=== PATIENT | male | born 1985 | race Caucasian/White ===

== ENCOUNTER 2022-09-17 18:55 | Emergency (ER) | payer OTHER, SELFPAY ==
[2022-09-17 19:10] VITALS: BP 144/86; PULSE 96; RESP 16; TEMP 36.8; O2SAT 100
--- NOTE | 2022-09-17 19:31 | ED.DENTAL ---
HPI - Dental/Oral General Chief complaint: Dental/Oral Stated complaint: Tooth pain Time Seen by Provider: 09/17/22 19:00 Source: patient and RN notes reviewed History of Present Illness HPI Narrative: patient is a 36-year-old male who presents to urgent care with complaints of right upper dental pain. Patient states that it started yesterday. States that he does have a root canal scheduled in 2 weeks. Patient was on a steroid to help with the pain and inflammation. Patient denies any fevers, nausea or vomiting. States that the pain and increased redness has caused facial swelling. No other acute complaints. Patient has been taking Tylenol for the pain. No acute distress noted. Patient aware of the plan of care. Some parts of this dictation were generated by voice recognition software and may contain typographical and/or grammatical inaccuracies. Related Data Home Medications Medication Instructions Recorded Confirmed bupropion HCl 300 mg 24 hr tablet, 300 mg PO DIRECTED 09/17/22 09/17/22 extended release Allergies Allergy/AdvReac Type Severity Reaction Status Date / Time No Known Allergies Allergy Verified 09/17/22 19:09 Review of Systems Review of Systems: CONSTITUTIONAL: Denies fever, chills, or sweats. EYES: Denies visual changes, redness, or discharge. ENT: Denies rhinorrhea, congestion, sore throat, or otalgia. Reports of right upper dental pain with facial swelling CARDIOVASCULAR: Denies chest pain, palpitations, or edema. RESPIRATORY: Denies cough or dyspnea. GASTROINTESTINAL: Denies abdominal pain, nausea, vomiting, or diarrhea. GENITOURINARY: Denies dysuria or hematuria. SKIN: Denies rash or itching. MUSCULOSKELETAL: Denies back pain, joint pain, or myalgia. NEUROLOGIC: Denies headache, numbness, or weakness. All other systems reviewed are negative, except as documented in HPI. PMFSH Comments At the time of my signature, I reviewed and agree with the nursing past medical, surgical, social, and family history. There is no relevant family history pertinent to the patient complaint. Exam Narrative: GENERAL: This is a well-nourished, well-developed patient, in no apparent distress. HEAD: normocephalic, atraumatic. EYES: PERRL. Sclera clear/white. Vision is grossly intact. EARS: External ears normal, auditory canals clear and without drainage, TMs normal without perforation. Hearing grossly intact. NOSE: External nose normal with no obvious nasal discharge, nares without redness, no rhinorrhea. THROAT: Mucous membranes moist, posterior pharynx clear. DENTAL: mild erythema and edema to the right upper 2nd premolar with mild facial swelling and tenderness NECK: Neck supple, non-tender without lymphadenopathy RESPIRATORY: Clear to auscultation. Breath sounds equal bilaterally. No wheezes, rales, or rhonchi. SKIN: warm, intact with no suspicious lesions or rash, good texture and turgor. NEURO: awake, alert, and oriented to person, place and time. There were no obvious focal neurologic abnormalities. EXTREMITIES: No clubbing, cyanosis, or edema. Course Course Level of Care: Express Care Visit Vital Signs Vital signs: Vital Signs Temperature 98.2 F 09/17/22 19:10 Pulse Rate 96 09/17/22 19:10 Respiratory Rate 16 09/17/22 19:10 Blood Pressure 144/86 H 09/17/22 19:10 Pulse Oximetry 100 09/17/22 19:10 Oxygen Delivery Room Air 09/17/22 19:10 Temperature 98.2 F 09/17/22 19:10 Pulse Rate 96 09/17/22 19:10 Respiratory Rate 16 09/17/22 19:10 Blood Pressure 144/86 H 09/17/22 19:10 Pulse Oximetry 100 09/17/22 19:10 Oxygen Delivery Room Air 09/17/22 19:10 Reviewed- Patient is informed that they may have pre-hypertension or hypertension based on a blood pressure reading in the department. I recommend the patient call the primary care provider listed on their discharge instructions or a physician of their choice this week to arrange follow-up for further
== END 2022-09-17 19:43 | disposition home or self-care (01) ==
PROVIDERS: Emergency Provider Nurse Practitioner Family; PCP Hospitalist
DX: K04.7 Periapical abscess without sinus (principal); F41.9 Anxiety disorder, unspecified; F32.A Depression, unspecified
CPT/HCPCS: 99213; G0463

== ENCOUNTER 2023-04-25 15:26 | Emergency (ER) | payer BC, SELFPAY ==
--- NOTE | ~2023-04-25 | XR_ITS ---
EXAMINATION: XR foot LT min 3V DATE: 04/25/2023 15:48 INDICATION: Left foot pain TECHNIQUE: Dorsoplantar, lateral, and 2 oblique views of the left foot were obtained. COMPARISON: None. FINDINGS: Bone alignment is normal. There is no fracture. There is mild osteoarthritis of multiple in terphalangeal joints. Posterior and plantar calcaneal enthesophytes are noted. IMPRESSION: 1. No acute osseous abnormality. Reviewed, dictated and finalized at location F.
[2023-04-25 15:30] VITALS: BP 139/79; PULSE 101; RESP 20; TEMP 36.7; O2SAT 100
--- NOTE | 2023-04-25 15:52 | ED.GENADULT ---
HPI - General Adult General Chief complaint: Extremity Injury, Upper Stated complaint: left foot pain Source: patient Mode of arrival: ambulatory Limitations: no limitations History of Present Illness HPI narrative: 37y/o male presented for complaint of left lateral foot pain for a few days. Pain is 0 at rest, rates 5/10 when walking. States walking barefoot is almost unbearable. He denies numbness, tingling, swelling, or bruising. Denies injury or excessive use. Endorses a history of high arches and has had a fracture as a result. He states he hoped it would improve on its own but has persisted. Related Data Home Medications Medication Instructions Recorded Confirmed bupropion HCl 300 mg 24 hr tablet, 300 mg PO DIRECTED 09/17/22 04/25/23 extended release Allergies Allergy/AdvReac Type Severity Reaction Status Date / Time No Known Allergies Allergy Verified 04/25/23 15:38 Review of Systems Review of Systems: CONSTITUTIONAL: Denies body aches, fever, chills EYES: Denies visual changes ENT: Denies rhinorrhea, congestion CARDIOVASCULAR: Denies chest pain, palpitations, or edema. RESPIRATORY: Denies cough or dyspnea. GASTROINTESTINAL: Denies abdominal pain, nausea, vomiting, or diarrhea. SKIN: Denies rash, itching, or wounds. MUSCULOSKELETAL: Reports left foot pain Denies back pain, joint pain, or myalgia. NEUROLOGIC: Denies headache, numbness, tingling, or weakness. PSYCH: Denies depression or anxiety. All systems reviewed & are unremarkable except as noted in HPI and below PMFSH Past Medical History Medical History (Updated 04/25/23 @ 16:22 by Alyssa Glaser, TRACY) No pertinent past medical history Comments At time of signature, I have reviewed and agree with nursing past medical, surgical, social and family history unless otherwise noted. Please see nursing chart for further information. There is no relevant family history pertinent to the presenting complaint Exam Narrative: GENERAL: Well-appearing, well-nourished, and in no acute distress. HEAD: Normocephalic, atraumatic. EYES: PERRLA, conjunctivae clear CHEST: Speaks in full sentences. No respiratory distress. HEART: Regular rate and rhythm. Normal and equal peripheral pulses. EXTREMITIES: left foot pain reported to the dorsal aspect of the 3rd through 5th mid metatarsals. Nontender to palpation. Foot has normal strength and sensation, normal range of motion. No swelling, redness, or ecchymosis, No open wounds, or obvious deformity; alignment normal, pulse palpable and equal bilaterally, skin warm, dry, pink. Capillary refill less than 3 seconds. SKIN: Warm, dry, no rash. NEURO: Alert and oriented x3. PSYCH: Normal mood and affect Course Course Emergency Course: Patient is aware of diagnosis, understands and agrees to treatment plan. Anticipatory guidance given. Patient agrees to follow-up as directed and is aware of reasons to seek care at the emergency department. Portions of this record may have been created with voice recognition software Level of Care: Express Care Visit Vital Signs Vital signs: Vital Signs Temperature 98.0 F 04/25/23 15:30 Pulse Rate 101 H 04/25/23 15:30 Respiratory Rate 20 04/25/23 15:30 Blood Pressure 139/79 04/25/23 15:30 Pulse Oximetry 100 04/25/23 15:30 Oxygen Delivery Room Air 04/25/23 15:30 Temperature 98.0 F 04/25/23 15:30 Pulse Rate 101 H 04/25/23 15:30 Respiratory Rate 04/25/23 15:30 Blood Pressure 139/79 04/25/23 15:30 Pulse Oximetry 100 04/25/23 15:30 Oxygen Delivery Room Air 04/25/23 15:30 Reviewed Medical Decision Making MDM Narrative Medical decision making narrative: Results of xray reviewed with patient. Discussed physical exam findings. Advised supportive measures and signs/symptoms to go to the ER. Pt is appropriate for outpt treatment and f/u. Differential Diagnosis Differential Diagnosis: foot sprain/strain, co
== END 2023-04-25 16:23 | disposition home or self-care (01) ==
PROVIDERS: Emergency Provider Nurse Practitioner Family; PCP Hospitalist
DX: M79.672 Pain in left foot (principal); F41.9 Anxiety disorder, unspecified; F32.A Depression, unspecified
CPT/HCPCS: 73630; 99213; G0463